=== PATIENT | male | born 1960 | race African-American/Black ===

== ENCOUNTER 2017-06-13 01:34 | Inpatient (IN) ==
[2017-06-13 02:37] LABS: Basophils # 0.1 10*3/uL (0.0-0.2); Basophils % 0.6 % (0.0-0.8); Hemoglobin 15.1 GM/DL (14.0-18.0); Immature Granulocytes % 0.4 %; Immature Granulocytes Absolute 0.03 #; Lymphocytes # 1.3 10*3/uL (1.4-4.0); Mean Corpuscular HGB Conc 35.1 GM/DL (32-36); Mean Corpuscular Hemoglobin 31 PG (27-34); Mean Corpuscular Volume 87.4 FL (87-102); Monocytes # 0.4 10*3/uL (0.11-0.8); Monocytes % 4.7 % (1.7-12.7); Neutrophils # 6.8 10*3/uL (1.4-7.4); Neutrophils % 79.3 % (38.7-73.9); Platelet Count 294 T/CUMM (130-400); Red Blood Count 4.92 MC/CUMM (3.8-5.5); Red Cell Distribution Width 11.4 % (9.3-17.3); White Blood Count 8.5 T/CUMM (4-12)
[2017-06-13 02:42] LABS: VBG Base Excess -1.8 MEQ/L (0-4); VBG HCO3 22.9 MEQ/L (24-28); VBG Oxygen Saturation 99.2 %; VBG PCO2 36.8 MMHG (41-51); VBG PH 7.395
[2017-06-13 02:52] LABS: Albumin 4.3 G/DL (3.4-5.0); Bilirubin,Total 0.5 MG/DL (0.2-1.0); Calcium 10.1 MG/DL (8.5-10.1); Osmolality,Calculated 310.1 MOS/KG (273-304); Potassium 4.4 MMOL/L (3.5-5.1); Total Protein 9.7 G/DL (6.4-8.3)
[2017-06-13] MEDS ORDERED: INSULIN REGULAR 100 UNIT/ML IV STA ×2 (03:31→09:41)
[2017-06-13] MEDS ORDERED: SODIUM CHLORIDE 0.9% 2,200 ML IV ONE (03:32)
[2017-06-13] MEDS ORDERED: INSULIN REGULAR 100 UNIT/ML ONE (03:38)
[2017-06-13 04:01] LABS: Apearance,Urine CLEAR (Clear); Bilirubin,Urine Negative (Negative); Blood, Urine Small mg/dL (Negative); Glucose,Urine (UA) >=500 mg/dL (Negative); Ketones,Urine 5 mg/dL (Negative); Nitrite,Urine Negative (Negative); Protein,Urine Negative; RBC,Urine 1 /HPF (0-4); Squamous Epithelial Cell,Urine Occasional /HPF (0-10); Urine Color Straw (Yellow); Urine Specific Gravity 1.028 (1.001-1.035); Urine Urobilinogen < 2.0 EU/DL (0.2-1.0); WBC,Urine <1 /HPF (0-6)
[2017-06-13 04:10] LABS: Barbiturates Screen,Urine Negative (Negative); Benzodiazepines Screen,Urine Negative (Negative); Cannabinoid Screen,Urine Negative (Negative); Opiate Screen,Urine Positive (Negative); Phencyclidine Screen,Urine Negative (Negative)
[2017-06-13] MEDS ORDERED: INSULIN REGULAR DRIP 100 ML IV SCH ×2 (04:30→06:00)
[2017-06-13] MEDS ORDERED: INSULIN REGULAR DRIP 100 ML IV ONE (04:46)
[2017-06-13] MEDS ORDERED: SODIUM CHLORIDE 0.9% 1,000 ML IV ONE (05:48)
[2017-06-13] MEDS ORDERED: SODIUM PHOSPHATE INJ 18.1 MMOL in SODIUM CHLORIDE 0.9% 250 ML IV PRN (05:48)
[2017-06-13] MEDS ORDERED: SODIUM BICARB INJ 100 MEQ in STERILE WATER INJ 400 ML IV PRN (05:48)
[2017-06-13] MEDS ORDERED: INSULIN REGULAR 100 UNIT/ML IV ONE (05:48)
[2017-06-13] MEDS ORDERED: DEXTROSE 50% 25 GM/50 ML VIAL IV PRN ×3 (05:48→05:57)
[2017-06-13] MEDS ORDERED: GLUCAGON 1 MG VIAL IM PRN (05:57)
[2017-06-13] MEDS ORDERED: MAGNESIUM SULF RIDER 4 GM in PREMIX 1 EACH IV PRN (05:57)
[2017-06-13] MEDS ORDERED: MAGNESIUM SULF RIDER 2 GM in PREMIX 1 EACH IV PRN (05:57)
[2017-06-13] MEDS: ENOXAPARIN 40 MG/0.4 ML SYRINGE SUBCUT SCH (07:10)
[2017-06-13 08:21] LABS: HIV Antigen/Antibody Result Nonreactive (Nonreactive)
[2017-06-13] MEDS ORDERED: LISINOPRIL 10 MG TABLET PO SCH (09:00)
[2017-06-13] MEDS: SODIUM CHLORIDE 0.9% 1,000 ML IV SCH ×2 (09:08→12:04)
[2017-06-13] MEDS ORDERED: NAPROXEN 500 MG TABLET ONE (09:13)
[2017-06-13] MEDS ORDERED: ASPIRIN CHEW 81 MG TABLET PO ONE (09:13)
[2017-06-13] MEDS ORDERED: LISINOPRIL 10 MG TABLET ONE (09:13)
[2017-06-13] MEDS: NAPROXEN 500 MG TABLET PO SCH ×2 (09:17→18:18)
[2017-06-13] MEDS: ASPIRIN EC 81 MG TABLET PO SCH (09:18)
[2017-06-13] MEDS ORDERED: SODIUM CHLORIDE 0.9% 1,000 ML IV SCH (10:48)
[2017-06-13] MEDS: INSULIN REGULAR 100 UNIT/ML SUBCUT SCH ×3 (12:05→20:16)
[2017-06-13 12:54] LABS: Calcium 8.7 MG/DL (8.5-10.1); Magnesium 2.4 MG/DL (1.8-2.4); Osmolality,Calculated 298.8 MOS/KG (273-304); Potassium 3.7 MMOL/L (3.5-5.1)
[2017-06-13] MEDS ORDERED: DEXT 5% NACL 0.45% KCL 20 MEQ 20 MEQ/1,000 ML BAG IV SCH (13:00)
[2017-06-13] MEDS: DEXTROSE 5% NACL 0.45% 1,000 ML IV SCH ×2 (13:30→17:42)
[2017-06-13] MEDS: POTASSIUM CHLORIDE RIDER 10 MEQ in PREMIX 1 EACH IV PRN ×4 (13:30→20:37)
[2017-06-13] MEDS ORDERED: ACETAMINOPHEN 325 MG TABLET PO PRN (17:17)
[2017-06-13 17:27] LABS: Calcium 8.4 MG/DL (8.5-10.1); Potassium 3.8 MMOL/L (3.5-5.1)
[2017-06-13] MEDS: SODIUM CHLORIDE 0.45% 1,000 ML IV SCH ×2 (17:30→21:50)
[2017-06-13] MEDS: metFORMIN 500 MG TABLET PO SCH (18:17)
[2017-06-13] MEDS: hydrALAZINE 20 MG/1 ML VIAL IV PRN (18:25)
[2017-06-13] MEDS ORDERED: INSULIN NPH/REGULAR 70/30 100 UNIT/ML SUBCUT SCH (19:00)
[2017-06-13] MEDS: TEMAZEPAM 15 MG CAPSULE PO PRN (20:04)
[2017-06-13] MEDS: LISINOPRIL 10 MG TABLET PO SCH (20:04)
[2017-06-13] MEDS: cloNIDine 0.1 MG TABLET PO PRN (23:16)
[2017-06-14 00:08] LABS: Osmolality,Calculated 286.7 MOS/KG (273-304); Potassium 3.3 MMOL/L (3.5-5.1)
[2017-06-14] MEDS: SODIUM CHLORIDE 0.45% 1,000 ML IV SCH ×3 (00:26→09:52)
[2017-06-14] MEDS: POTASSIUM CHLORIDE RIDER 10 MEQ in PREMIX 1 EACH IV PRN ×4 (00:26→03:56)
[2017-06-14] MEDS: hydrALAZINE 20 MG/1 ML VIAL IV PRN ×2 (00:30→06:23)
[2017-06-14 04:05] LABS: Basophils # 0.1 10*3/uL (0.0-0.2); Basophils % 0.5 % (0.0-0.8); Eosinophils # 0.1 10*3/uL (0.0-0.87); Eosinophils % 0.5 % (0.00-10.9); Hematocrit 36.3 VOL% (42.0-52.0); Hemoglobin 12.7 GM/DL (14.0-18.0); Immature Granulocytes % 0.1 %; Immature Granulocytes Absolute 0.01 #; Lymphocytes # 3.1 10*3/uL (1.4-4.0); Lymphocytes % 33.3 % (21.2-54.2); Mean Corpuscular Hemoglobin 31 PG (27-34); Mean Corpuscular Volume 87.3 FL (87-102); Mean Platelet Volume 10.7 FL (9.6-12.0); Monocytes # 0.5 10*3/uL (0.11-0.8); Monocytes % 5.6 % (1.7-12.7); Neutrophils # 5.6 10*3/uL (1.4-7.4); Platelet Count 237 T/CUMM (130-400); Red Blood Count 4.16 MC/CUMM (3.8-5.5); Red Cell Distribution Width 11.4 % (9.3-17.3); White Blood Count 9.3 T/CUMM (4-12)
[2017-06-14 04:30] LABS: Calcium 7.9 MG/DL (8.5-10.1); Osmolality,Calculated 281.8 MOS/KG (273-304); Potassium 3.8 MMOL/L (3.5-5.1)
[2017-06-14 04:31] LABS: Magnesium 1.8 MG/DL (1.8-2.4); Phosphorous 1.8 MG/DL (2.5-4.9)
[2017-06-14] MEDS: ENOXAPARIN 40 MG/0.4 ML SYRINGE SUBCUT SCH (05:05)
[2017-06-14] MEDS: cloNIDine 0.1 MG TABLET PO PRN (05:06)
[2017-06-14] MEDS: NAPROXEN 500 MG TABLET PO SCH ×2 (05:48→17:45)
[2017-06-14] MEDS: INSULIN REGULAR 100 UNIT/ML SUBCUT SCH ×4 (08:43→22:01)
[2017-06-14] MEDS: INSULIN NPH/REGULAR 70/30 100 UNIT/ML SUBCUT SCH (08:44)
[2017-06-14] MEDS: metFORMIN 500 MG TABLET PO SCH ×2 (08:46→16:39)
[2017-06-14] MEDS: LISINOPRIL 10 MG TABLET PO SCH (08:46)
[2017-06-14] MEDS: ASPIRIN EC 81 MG TABLET PO SCH (08:46)
[2017-06-14] MEDS ORDERED: hydroCHLOROthiazide 12.5 MG CAPSULE PO SCH (09:00)
[2017-06-14] MEDS: LISINOPRIL 20 MG TABLET PO SCH ×2 (12:45→22:01)
[2017-06-14] MEDS ORDERED: INSULIN NPH/REGULAR 70/30 100 UNIT/ML SUBCUT SCH (16:30)
[2017-06-14] MEDS: TEMAZEPAM 15 MG CAPSULE PO PRN (22:28)
[2017-06-15] MEDS: NAPROXEN 500 MG TABLET PO SCH ×2 (05:54→17:45)
[2017-06-15] MEDS: ENOXAPARIN 40 MG/0.4 ML SYRINGE SUBCUT SCH (05:54)
[2017-06-15 07:22] LABS: Calcium 8.2 MG/DL (8.5-10.1); Osmolality,Calculated 277.2 MOS/KG (273-304); Potassium 3.7 MMOL/L (3.5-5.1)
[2017-06-15] MEDS: INSULIN REGULAR 100 UNIT/ML SUBCUT SCH ×4 (07:48→21:29)
[2017-06-15] MEDS ORDERED: INSULIN NPH/REGULAR 70/30 100 UNIT/ML SUBCUT ONE (08:48)
[2017-06-15] MEDS: metFORMIN 500 MG TABLET PO SCH ×2 (08:53→17:11)
[2017-06-15] MEDS: ASPIRIN EC 81 MG TABLET PO SCH (08:53)
[2017-06-15] MEDS: LISINOPRIL 20 MG TABLET PO SCH ×2 (08:53→21:25)
[2017-06-15] MEDS: BACITRACIN/POLYMYXIN OINT 14.17 GM TUBE TOP SCH ×2 (08:54→21:30)
[2017-06-15] MEDS: amLODIPine 5 MG TABLET PO SCH (08:58)
[2017-06-15] MEDS ORDERED: INSULIN NPH/REGULAR 70/30 100 UNIT/ML SUBCUT SCH (09:00)
[2017-06-15] MEDS: POTASSIUM CHLORIDE RIDER 10 MEQ in PREMIX 1 EACH IV PRN ×2 (10:59→13:11)
[2017-06-15] MEDS: INSULIN NPH/REGULAR 70/30 100 UNIT/ML SUBCUT SCH ×2 (12:16→17:07)
[2017-06-15] MEDS: cloNIDine 0.1 MG TABLET PO PRN (15:50)
[2017-06-15] MEDS: NICOTINE 21 MG/24 HR PATCH TRANSDERM SCH (17:08)
[2017-06-15] MEDS: TEMAZEPAM 15 MG CAPSULE PO PRN (21:25)
[2017-06-16] MEDS: ENOXAPARIN 40 MG/0.4 ML SYRINGE SUBCUT SCH (05:59)
[2017-06-16] MEDS: NAPROXEN 500 MG TABLET PO SCH (05:59)
[2017-06-16 08:50] LABS: Blood Urea Nitrogen 11 MG/DL (7-18); Calcium 8.5 MG/DL (8.5-10.1); Glucose 164 MG/DL (74-106); Osmolality,Calculated 272.1 MOS/KG (273-304); Potassium 3.6 MMOL/L (3.5-5.1); Rheumatoid Factor < 15 IU/ML (<15); Sodium 135 MMOL/L (136-145); Uric Acid 2.3 MG/DL (3.5-7.2)
[2017-06-16] MEDS: metFORMIN 500 MG TABLET PO SCH (09:02)
[2017-06-16] MEDS: NICOTINE 21 MG/24 HR PATCH TRANSDERM SCH (09:03)
[2017-06-16] MEDS: INSULIN REGULAR 100 UNIT/ML SUBCUT SCH ×2 (09:03→12:50)
[2017-06-16] MEDS: amLODIPine 5 MG TABLET PO SCH (09:03)
[2017-06-16] MEDS: ASPIRIN EC 81 MG TABLET PO SCH (09:03)
[2017-06-16] MEDS: LISINOPRIL 20 MG TABLET PO SCH (09:03)
[2017-06-16] MEDS: BACITRACIN/POLYMYXIN OINT 14.17 GM TUBE TOP SCH (09:03)
[2017-06-16] MEDS: INSULIN NPH/REGULAR 70/30 100 UNIT/ML SUBCUT SCH (09:04)
[2017-06-16 13:02] VITALS: BP 174/74
== END 2017-06-16 14:17 | disposition home or self-care (01) | DRG 638 ==
LOC: N.ED 01:34 → N.EDINP 05:15 → SUATTDRO 05:15 → N.CC 11:25 → N.5E 06-14 14:47
PROVIDERS: ATTEND Hospitalist

== ENCOUNTER 2018-03-05 16:23 | Observation (INO) ==
[2018-03-05 17:18] LABS: Basophils # 0.1 10*3/uL (0.0-0.2); Basophils % 0.7 % (0.0-0.8); Eosinophils # 0.1 10*3/uL (0.0-0.87); Eosinophils % 0.8 % (0.00-10.9); Hematocrit 40.2 VOL% (42.0-52.0); Hemoglobin 13.5 GM/DL (14.0-18.0); Immature Granulocytes % 0.3 %; Immature Granulocytes Absolute 0.02 #; Lymphocytes # 2.1 10*3/uL (1.4-4.0); Lymphocytes % 28.2 % (21.2-54.2); Mean Corpuscular HGB Conc 33.6 GM/DL (32-36); Mean Corpuscular Hemoglobin 30 PG (27-34); Mean Corpuscular Volume 89.7 FL (87-102); Monocytes # 0.5 10*3/uL (0.11-0.8); Neutrophils # 4.6 10*3/uL (1.4-7.4); Platelet Count 321 T/CUMM (130-400); Red Blood Count 4.48 MC/CUMM (3.8-5.5); Red Cell Distribution Width 12.6 % (9.3-17.3); White Blood Count 7.3 T/CUMM (4-12)
[2018-03-05 17:25] LABS: Apearance,Urine CLEAR (Clear); Bacteria,Urine Occasional /HPF (Few); Bilirubin,Urine Negative (Negative); Blood, Urine Small mg/dL (Negative); Glucose,Urine (UA) >=500 mg/dL (Negative); Ketones,Urine Negative (Negative); Mucus,Urine Occasional /LPF (Occasional); Nitrite,Urine Negative (Negative); Protein,Urine Negative; RBC,Urine 1 /HPF (0-4); Squamous Epithelial Cell,Urine Occasional /HPF (0-10); Urine Color Straw (Yellow); Urine Specific Gravity 1.029 (1.001-1.035); Urine Urobilinogen < 2.0 EU/DL (0.2-1.0); WBC,Urine 2 /HPF (0-6)
[2018-03-05 17:59] LABS: Albumin 3.8 G/DL (3.4-5.0); Bilirubin,Total 0.4 MG/DL (0.2-1.0); Calcium 9.3 MG/DL (8.5-10.1); Osmolality,Calculated 293.4 MOS/KG (273-304); Potassium 4.6 MMOL/L (3.5-5.1); Total Protein 8.3 G/DL (6.4-8.3)
[2018-03-05] MEDS ORDERED: SODIUM CHLORIDE 0.9% 1,000 ML IV STA (18:03)
[2018-03-05] MEDS ORDERED: INSULIN REGULAR 100 UNIT/ML IV STA (18:12)
[2018-03-05] MEDS ORDERED: INSULIN LISPRO 100 UNIT/ML ONE (18:20)
[2018-03-05] MEDS ORDERED: GLUCAGON 1 MG VIAL IM PRN (18:37)
[2018-03-05] MEDS ORDERED: DEXTROSE 50% 25 GM/50 ML VIAL IV PRN (18:37)
[2018-03-05] MEDS ORDERED: ENOXAPARIN 40 MG/0.4 ML SYRINGE ONE (18:41)
[2018-03-05] MEDS ORDERED: hydrALAZINE 20 MG/1 ML VIAL IV PRN (18:42)
[2018-03-05] MEDS ORDERED: LISINOPRIL 10 MG TABLET PO STA (18:51)
[2018-03-05] MEDS ORDERED: MAGNESIUM CITRATE 300 ML BOTTLE PO ONE (19:00)
[2018-03-05] MEDS ORDERED: cefTRIAXone 1,000 MG VIAL ONE (19:02)
[2018-03-05] MEDS: cefTRIAXone 1,000 MG in SYRINGE 1 EACH IV SCH (19:08)
[2018-03-05] MEDS ORDERED: LISINOPRIL 10 MG TABLET ONE (19:10)
[2018-03-05] MEDS ORDERED: MAGNESIUM CITRATE 300 ML BOTTLE ONE (19:17)
[2018-03-05] MEDS: SODIUM CHLORIDE 0.9% 1,000 ML IV SCH (19:26)
[2018-03-05] MEDS: INSULIN REGULAR 100 UNIT/ML SUBCUT SCH (22:12)
[2018-03-05] MEDS: NYSTATIN 500,000 UNIT/5 ML UDCUP SWISH/SWAL SCH (22:13)
[2018-03-05] MEDS: DOXYCYCLINE HYCLATE 100 MG CAPSULE PO SCH (22:13)
[2018-03-05] MEDS: ENOXAPARIN 40 MG/0.4 ML SYRINGE SUBCUT SCH (22:13)
[2018-03-05] MEDS ORDERED: INSULIN GLARGINE 100 UNIT/ML SUBCUT SCH (22:30)
[2018-03-06] MEDS ORDERED: SODIUM PHOSPHATE ENEMA 133 ML BOTTLE RECTAL ONE
[2018-03-06] MEDS: SODIUM CHLORIDE 0.9% 1,000 ML IV SCH ×2 (06:02→12:32)
[2018-03-06 06:31] LABS: Basophils # 0.1 10*3/uL (0.0-0.2); Basophils % 0.9 % (0.0-0.8); Eosinophils # 0.1 10*3/uL (0.0-0.87); Eosinophils % 1.3 % (0.00-10.9); Hematocrit 35.9 VOL% (42.0-52.0); Hemoglobin 12.2 GM/DL (14.0-18.0); Immature Granulocytes % 0.1 %; Immature Granulocytes Absolute 0.01 #; Lymphocytes % 43.9 % (21.2-54.2); Mean Corpuscular Hemoglobin 30 PG (27-34); Mean Corpuscular Volume 88.6 FL (87-102); Mean Platelet Volume 9.9 FL (9.6-12.0); Monocytes # 0.5 10*3/uL (0.11-0.8); Monocytes % 7.8 % (1.7-12.7); Neutrophils # 3.1 10*3/uL (1.4-7.4); Platelet Count 295 T/CUMM (130-400); Red Blood Count 4.05 MC/CUMM (3.8-5.5); Red Cell Distribution Width 12.5 % (9.3-17.3); White Blood Count 6.8 T/CUMM (4-12)
[2018-03-06 06:43] LABS: Calcium 7.9 MG/DL (8.5-10.1)
[2018-03-06 06:44] LABS: Osmolality,Calculated 280.7 MOS/KG (273-304); Potassium 3.7 MMOL/L (3.5-5.1)
[2018-03-06] MEDS ORDERED: ATENOLOL 50 MG TABLET PO SCH (09:00)
[2018-03-06] MEDS ORDERED: ASPIRIN EC 81 MG TABLET PO SCH (09:00)
[2018-03-06] MEDS: NYSTATIN 500,000 UNIT/5 ML UDCUP SWISH/SWAL SCH ×4 (09:15→21:32)
[2018-03-06] MEDS: INSULIN REGULAR 100 UNIT/ML SUBCUT SCH ×3 (09:15→16:55)
[2018-03-06] MEDS: POLYETHYLENE GLYCOL POWDER 17 GM PACK PO SCH (09:16)
[2018-03-06] MEDS: DOXYCYCLINE HYCLATE 100 MG CAPSULE PO SCH ×2 (09:16→21:31)
[2018-03-06] MEDS: glipiZIDE 10 MG TABLET PO SCH ×2 (09:24→21:31)
[2018-03-06] MEDS: hydrALAZINE 25 MG TABLET PO SCH ×2 (09:24→21:33)
[2018-03-06] MEDS: GABAPENTIN 300 MG CAPSULE PO SCH ×3 (09:28→21:31)
[2018-03-06] MEDS: LISINOPRIL 10 MG TABLET PO SCH (09:28)
[2018-03-06] MEDS: MORPHINE 4 MG/1 ML VIAL IV PRN ×2 (12:33→21:31)
[2018-03-06] MEDS ORDERED: MAGNESIUM CITRATE 300 ML BOTTLE PO PRN (13:28)
[2018-03-06] MEDS ORDERED: INSULIN GLARGINE 100 UNIT/ML SUBCUT SCH (14:09)
[2018-03-06] MEDS: BACITRACIN OINT 0.9 GM PACK TOP SCH (14:27)
[2018-03-06] MEDS: metFORMIN 500 MG TABLET PO SCH (16:56)
[2018-03-06] MEDS: cefTRIAXone 1,000 MG in SYRINGE 1 EACH IV SCH (18:39)
[2018-03-06] MEDS: ENOXAPARIN 40 MG/0.4 ML SYRINGE SUBCUT SCH (21:31)
[2018-03-07] MEDS: INSULIN REGULAR 100 UNIT/ML SUBCUT SCH ×2 (00:56→08:44)
[2018-03-07] MEDS: BACITRACIN OINT 0.9 GM PACK TOP SCH ×2 (00:56→09:48)
[2018-03-07] MEDS: SODIUM CHLORIDE 0.9% 1,000 ML IV SCH (02:49)
[2018-03-07] MEDS: MORPHINE 4 MG/1 ML VIAL IV PRN (05:50)
[2018-03-07] MEDS: metFORMIN 500 MG TABLET PO SCH (08:44)
[2018-03-07] MEDS: glipiZIDE 10 MG TABLET PO SCH (08:46)
[2018-03-07] MEDS ORDERED: FLUCONAZOLE 200 MG TABLET PO SCH (09:00)
[2018-03-07] MEDS: hydrALAZINE 25 MG TABLET PO SCH (09:47)
[2018-03-07] MEDS: LISINOPRIL 10 MG TABLET PO SCH (09:47)
[2018-03-07] MEDS: GABAPENTIN 300 MG CAPSULE PO SCH (09:47)
[2018-03-07] MEDS: POLYETHYLENE GLYCOL POWDER 17 GM PACK PO SCH (09:48)
[2018-03-07] MEDS: NYSTATIN 500,000 UNIT/5 ML UDCUP SWISH/SWAL SCH (09:48)
[2018-03-07] MEDS: DOXYCYCLINE HYCLATE 100 MG CAPSULE PO SCH (09:48)
[2018-03-07 13:10] VITALS: BP 154/84
== END 2018-03-07 12:10 | disposition home or self-care (01) ==
LOC: N.ED 16:23 → N.EDINP 16:23 → N.5E 21:57
PROVIDERS: ADMIT Internal Medicine; ATTEND Internal Medicine

== ENCOUNTER 2019-01-01 09:55 | Observation (INO) ==
[2019-01-01 10:51] LABS: Basophils % 0.6 % (0.0-0.8); Eosinophils # 0.1 10*3/uL (0.0-0.87); Eosinophils % 0.9 % (0.00-10.9); Hematocrit 35.5 VOL% (42.0-52.0); Hemoglobin 11.9 GM/DL (14.0-18.0); Immature Granulocytes % 0.3 %; Immature Granulocytes Absolute 0.02 #; Lymphocytes # 1.6 10*3/uL (1.4-4.0); Lymphocytes % 25.3 % (21.2-54.2); Mean Corpuscular HGB Conc 33.5 GM/DL (32-36); Mean Corpuscular Volume 87.2 FL (87-102); Mean Platelet Volume 9.9 FL (9.6-12.0); Monocytes % 8.2 % (1.7-12.7); Neutrophils % 64.7 % (38.7-73.9); Platelet Count 295 T/CUMM (130-400); Red Blood Count 4.07 MC/CUMM (3.8-5.5); Red Cell Distribution Width 11.9 % (9.3-17.3); White Blood Count 6.5 T/CUMM (4-12)
[2019-01-01] MEDS ORDERED: SODIUM CHLORIDE 0.9% 1,000 ML IV STA (10:53)
[2019-01-01 11:01] LABS: Apearance,Urine CLEAR (Clear); Bilirubin,Urine Negative (Negative); Blood, Urine Negative (Negative); Glucose,Urine (UA) >=500 mg/dL (Negative); Ketones,Urine Negative (Negative); Nitrite,Urine Negative (Negative); Protein,Urine Negative; Urine Color Light Yellow (Yellow); Urine Specific Gravity 1.028 (1.001-1.035); Urine Urobilinogen < 2.0 EU/DL (0.2-1.0)
[2019-01-01 11:05] LABS: INR 0.9; PT Patient Result 9.7 SECS; Partial Thromboplastin Time 24.6 SECS (0-40)
[2019-01-01 11:08] LABS: Barbiturates Screen,Urine Negative (Negative); Benzodiazepines Screen,Urine Negative (Negative); Cannabinoid Screen,Urine Negative (Negative); Opiate Screen,Urine Positive (Negative); Phencyclidine Screen,Urine Negative (Negative)
[2019-01-01 11:22] LABS: Albumin 3.7 G/DL (3.4-5.0); Bilirubin,Total 0.6 MG/DL (0.2-1.0); Osmolality,Calculated 295.2 MOS/KG (273-304); Total Protein 7.4 G/DL (6.4-8.3)
[2019-01-01] MEDS ORDERED: INSULIN REGULAR 100 UNIT/ML ONE (12:18)
[2019-01-01] MEDS ORDERED: INSULIN REGULAR 100 UNIT/ML IV STA (12:24)
[2019-01-01] MEDS ORDERED: GLUCAGON 1 MG VIAL IM PRN (13:23)
[2019-01-01] MEDS ORDERED: hydrALAZINE 20 MG/1 ML VIAL IV PRN (13:23)
[2019-01-01] MEDS ORDERED: DEXTROSE 50% 25 GM/50 ML VIAL IV PRN ×2 (13:23→13:35)
[2019-01-01] MEDS ORDERED: amLODIPine 5 MG TABLET PO STA (13:26)
[2019-01-01] MEDS ORDERED: DEXTROSE 10% 250 ML IV PRN (13:30)
[2019-01-01] MEDS ORDERED: PROMETHAZINE 25 MG/1 ML VIAL IM PRN (13:35)
[2019-01-01] MEDS ORDERED: ACETAMINOPHEN 325 MG TABLET PO PRN (13:35)
[2019-01-01] MEDS ORDERED: ONDANSETRON 4 MG/2 ML VIAL IV PRN (13:35)
[2019-01-01 14:56] LABS: ABG Base Excess 0.7 MMOL/L (-2.5-2.5); ABG Oxygen Saturation 97.6 % (95-100); ABG PCO2 41.9 MM HG (35-48); ABG PH 7.395 (7.35-7.45); ABG PO2 90.9 MM HG (80-95); ABG TCO2 22.7 MMOL/L (23-27)
[2019-01-01] MEDS: INSULIN REGULAR 100 UNIT/ML SUBCUT SCH ×3 (16:00→22:11)
[2019-01-01] MEDS: INSULIN NPH/REGULAR 70/30 100 UNIT/ML SUBCUT SCH (16:29)
[2019-01-01] MEDS: SODIUM CHLORIDE 0.9% 1,000 ML IV SCH (16:29)
[2019-01-01] MEDS: metFORMIN 500 MG TABLET PO SCH (16:30)
[2019-01-01] MEDS: HEPARIN 5,000 UNIT/1 ML VIAL SUBCUT SCH (16:31)
[2019-01-01] MEDS: GABAPENTIN 300 MG CAPSULE PO SCH ×2 (16:31→22:11)
[2019-01-01] MEDS ORDERED: GABAPENTIN 300 MG CAPSULE PO SCH (21:00)
[2019-01-01] MEDS: DOCUSATE SODIUM 100 MG CAPSULE PO SCH (22:11)
[2019-01-01] MEDS: glipiZIDE 10 MG TABLET PO SCH (22:11)
[2019-01-02] MEDS: HEPARIN 5,000 UNIT/1 ML VIAL SUBCUT SCH ×4 (00:22→23:40)
[2019-01-02 04:51] LABS: Basophils % 0.3 % (0.0-0.8); Eosinophils # 0.1 10*3/uL (0.0-0.87); Eosinophils % 0.9 % (0.00-10.9); Hematocrit 37.3 VOL% (42.0-52.0); Hemoglobin 12.6 GM/DL (14.0-18.0); Immature Granulocytes % 0.2 %; Immature Granulocytes Absolute 0.02 #; Lymphocytes # 3.3 10*3/uL (1.4-4.0); Lymphocytes % 37.8 % (21.2-54.2); Mean Corpuscular HGB Conc 33.8 GM/DL (32-36); Mean Corpuscular Volume 86.3 FL (87-102); Mean Platelet Volume 9.7 FL (9.6-12.0); Monocytes % 5.1 % (1.7-12.7); Neutrophils % 55.7 % (38.7-73.9); Platelet Count 294 T/CUMM (130-400); Red Blood Count 4.32 MC/CUMM (3.8-5.5); Red Cell Distribution Width 11.7 % (9.3-17.3); White Blood Count 8.7 T/CUMM (4-12)
[2019-01-02 05:23] LABS: Albumin 3.1 G/DL (3.4-5.0); Calcium 8.4 MG/DL (8.5-10.1); Osmolality,Calculated 280.7 MOS/KG (273-304); Risk Ratio 2.32; Thyroid Stimulating Hormone 0.148 uIU/ml (0.358-3.74); Total Protein 6.4 G/DL (6.4-8.3); VLDL CHOLESTEROL 14.8 MG/DL
[2019-01-02 06:01] LABS: Calcium 8.4 MG/DL (8.5-10.1); Osmolality,Calculated 277.8 MOS/KG (273-304)
[2019-01-02] MEDS: SODIUM CHLORIDE 0.9% 1,000 ML IV SCH ×2 (06:11→16:24)
[2019-01-02] MEDS: INSULIN REGULAR 100 UNIT/ML SUBCUT SCH ×4 (08:11→21:48)
[2019-01-02] MEDS: glipiZIDE 10 MG TABLET PO SCH ×2 (08:13→21:48)
[2019-01-02] MEDS: GABAPENTIN 300 MG CAPSULE PO SCH ×3 (08:13→21:47)
[2019-01-02] MEDS: PANTOPRAZOLE 40 MG TABLET PO SCH (08:13)
[2019-01-02] MEDS: DOCUSATE SODIUM 100 MG CAPSULE PO SCH ×2 (08:13→21:46)
[2019-01-02] MEDS: ATENOLOL 50 MG TABLET PO SCH (08:13)
[2019-01-02] MEDS: INSULIN NPH/REGULAR 70/30 100 UNIT/ML SUBCUT SCH ×2 (08:13→16:23)
[2019-01-02] MEDS: hydroCHLOROthiazide 25 MG TABLET PO SCH (08:14)
[2019-01-02] MEDS: metFORMIN 500 MG TABLET PO SCH ×2 (08:14→16:23)
[2019-01-02] MEDS: LISINOPRIL 10 MG TABLET PO SCH (08:14)
[2019-01-02] MEDS: ASPIRIN EC 81 MG TABLET PO SCH (08:59)
[2019-01-02] MEDS ORDERED: amLODIPine 10 MG TABLET PO SCH (09:00)
[2019-01-02] MEDS ORDERED: POTASSIUM CHLORIDE 20 MEQ TABLET PO ONE (10:00)
[2019-01-02] MEDS ORDERED: POTASSIUM CHLORIDE 20 MEQ TABLET PO PRN (11:54)
[2019-01-02] MEDS: MAGNESIUM CHLORIDE 64 MG TABLET PO SCH (12:35)
[2019-01-02] MEDS: KETOROLAC 30 MG/1 ML VIAL IV SCH ×2 (17:25→23:38)
[2019-01-03 04:33] LABS: Basophils % 0.7 % (0.0-0.8); Eosinophils # 0.1 10*3/uL (0.0-0.87); Eosinophils % 1.6 % (0.00-10.9); Hematocrit 35.5 VOL% (42.0-52.0); Lymphocytes # 3.6 10*3/uL (1.4-4.0); Lymphocytes % 61.7 % (21.2-54.2); Mean Corpuscular HGB Conc 33.8 GM/DL (32-36); Mean Platelet Volume 10.1 FL (9.6-12.0); Platelet Count 287 T/CUMM (130-400); Red Blood Count 4.08 MC/CUMM (3.8-5.5); White Blood Count 5.8 T/CUMM (4-12)
[2019-01-03 04:47] LABS: Albumin 2.7 G/DL (3.4-5.0); Bilirubin,Total 0.4 MG/DL (0.2-1.0); Calcium 7.8 MG/DL (8.5-10.1); Osmolality,Calculated 284.8 MOS/KG (273-304); Total Protein 6.1 G/DL (6.4-8.3)
[2019-01-03 04:51] LABS: Calcium 7.9 MG/DL (8.5-10.1); Osmolality,Calculated 286.8 MOS/KG (273-304)
[2019-01-03 05:04] LABS: Band Neutrophils 1 % (0-10); Eosinophils 2 % (0-10); Lymphocytes 57 % (20-55); Nucleated Red Blood Cells 3 (0-5); Platelet Estimate Normal; Segmented Neutrophils 34 % (50-85); Total Cells Counted 100
[2019-01-03] MEDS: SODIUM CHLORIDE 0.9% 1,000 ML IV SCH ×2 (05:07→17:14)
[2019-01-03] MEDS: KETOROLAC 30 MG/1 ML VIAL IV SCH ×2 (05:08→14:52)
[2019-01-03] MEDS ORDERED: POTASSIUM CHLORIDE RIDER 10 MEQ in PREMIX 1 EACH IV PRN (06:44)
[2019-01-03] MEDS ORDERED: MAGNESIUM SULF RIDER 2 GM in PREMIX 1 EACH IV PRN (06:44)
[2019-01-03] MEDS ORDERED: DIAZEPAM 5 MG TABLET PO ONE (06:44)
[2019-01-03] MEDS ORDERED: diphenhydrAMINE CAP 25 MG CAPSULE PO ONE (06:44)
[2019-01-03] MEDS ORDERED: INSULIN NPH/REGULAR 70/30 100 UNIT/ML SUBCUT SCH (08:34)
[2019-01-03] MEDS: INSULIN REGULAR 100 UNIT/ML SUBCUT SCH ×3 (08:54→15:49)
[2019-01-03] MEDS: MAGNESIUM CHLORIDE 64 MG TABLET PO SCH (08:55)
[2019-01-03] MEDS: metFORMIN 500 MG TABLET PO SCH ×2 (08:56→16:28)
[2019-01-03] MEDS: hydroCHLOROthiazide 25 MG TABLET PO SCH (08:56)
[2019-01-03] MEDS: DOCUSATE SODIUM 100 MG CAPSULE PO SCH (08:56)
[2019-01-03] MEDS: glipiZIDE 10 MG TABLET PO SCH (08:56)
[2019-01-03] MEDS: LISINOPRIL 10 MG TABLET PO SCH (08:56)
[2019-01-03] MEDS: ASPIRIN EC 81 MG TABLET PO SCH (08:56)
[2019-01-03] MEDS: GABAPENTIN 300 MG CAPSULE PO SCH ×2 (08:56→16:25)
[2019-01-03] MEDS: ATENOLOL 50 MG TABLET PO SCH (08:56)
[2019-01-03] MEDS: PANTOPRAZOLE 40 MG TABLET PO SCH (08:56)
[2019-01-03] MEDS: HEPARIN 5,000 UNIT/1 ML VIAL SUBCUT SCH ×2 (08:57→16:24)
[2019-01-03] MEDS: INSULIN NPH/REGULAR 70/30 100 UNIT/ML SUBCUT SCH (09:27)
[2019-01-03] MEDS ORDERED: KETOROLAC 30 MG/1 ML VIAL IV SCH (13:30)
[2019-01-03] MEDS ORDERED: fentaNYL 100 MCG/2 ML VIAL ONE (14:30)
[2019-01-03] MEDS ORDERED: NITROGLYCERIN DRIP 50 MG/250 ML BOTTLE IV ONE (14:30)
[2019-01-03] MEDS ORDERED: LIDOCAINE 1% 20 ML VIAL ONE (14:30)
[2019-01-03] MEDS ORDERED: MIDAZOLAM 2 MG/2 ML VIAL ONE (14:30)
[2019-01-03] MEDS ORDERED: VERAPAMIL 5 MG/2 ML VIAL ONE (14:30)
[2019-01-03] MEDS ORDERED: ENOXAPARIN 30 MG/0.3 ML SYRINGE ONE (14:47)
[2019-01-03 15:31] VITALS: BP 138/74
== END 2019-01-03 18:23 | disposition home or self-care (01) ==
LOC: N.EDINP 09:55 → N.ED 09:55 → N.5E 15:43
PROVIDERS: ADMIT Hospitalist; ATTEND Hospitalist
PROC: CLCCHCL (ICD-10-PCS; 2019-01-03 14:45)

== ENCOUNTER 2022-01-11 12:13 | Observation (INO) ==
[2022-01-11] MEDS ORDERED: SODIUM CHLORIDE 0.9% 1,000 ML IV STA ×2 (13:18→14:00)
[2022-01-11 13:30] LABS: Basophils # 0.1 10*3/uL (0.0-0.2); Basophils % 0.9 % (0.0-0.8); Eosinophils # 0.1 10*3/uL (0.0-0.87); Eosinophils % 0.9 % (0.00-10.9); Hemoglobin 13.7 GM/DL (14.0-18.0); Immature Granulocytes % 0.2 %; Immature Granulocytes Absolute 0.01 #; Lymphocytes # 1.9 10*3/uL (1.4-4.0); Lymphocytes % 31.6 % (21.2-54.2); Mean Corpuscular HGB Conc 34.3 GM/DL (32-36); Mean Corpuscular Volume 87.9 FL (87-102); Mean Platelet Volume 10.4 FL (9.6-12.0); Monocytes # 0.6 10*3/uL (0.11-0.8); Monocytes % 9.4 % (1.7-12.7); Platelet Count 283 T/CUMM (130-400); Red Blood Count 4.55 MC/CUMM (3.8-5.5); White Blood Count 5.9 T/CUMM (4-12)
[2022-01-11 14:08] LABS: Osmolality,Calculated 306.6 MOS/KG (273-304)
[2022-01-11 14:37] LABS: Arterial Base Excess iSTAT 0 MMOL/L (-2.5-2.5); Arterial Bicarbonate iSTAT 25.5 MMOL/L (20-26); Arterial O2 Saturation iSTAT 96 % (95-100); Arterial PCO2 iSTAT 42 MM HG (35-48); Arterial PO2 iSTAT 85 MM HG (80-95); Arterial Total CO2 iSTAT 27 MMO/L (23-27); Arterial pH iSTAT 7.394 (7.35-7.45)
[2022-01-11] MEDS ORDERED: INSULIN REGULAR 100 UNIT/ML ONE (15:21)
[2022-01-11] MEDS ORDERED: INSULIN REGULAR 100 UNIT/ML IV STA ×2 (15:32→16:09)
[2022-01-11] MEDS: SODIUM CHLORIDE 0.9% 1,000 ML IV SCH (16:00)
[2022-01-11] MEDS ORDERED: GLUCAGON 1 MG VIAL IM PRN (16:07)
[2022-01-11] MEDS ORDERED: DOCUSATE SODIUM 100 MG CAPSULE PO PRN (16:07)
[2022-01-11] MEDS ORDERED: ONDANSETRON 4 MG/2 ML VIAL IV PRN (16:07)
[2022-01-11] MEDS ORDERED: ACETAMINOPHEN 325 MG TABLET PO PRN (16:07)
[2022-01-11] MEDS ORDERED: CALCIUM CARBONATE CHEW 500 MG TABLET PO PRN (16:07)
[2022-01-11] MEDS ORDERED: DEXTROSE 10% 250 ML BAG IV PRN (16:18)
[2022-01-11] MEDS ORDERED: ENOXAPARIN 40 MG/0.4 ML SYRINGE SUBCUT SCH (16:30)
[2022-01-11] MEDS ORDERED: INSULIN LISPRO 100 UNIT/ML SUBCUT SCH (18:00)
[2022-01-11] MEDS: INSULIN LISPRO 100 UNIT/ML SUBCUT SCH (21:02)
[2022-01-12] MEDS: INSULIN LISPRO 100 UNIT/ML SUBCUT SCH ×4 (00:05→11:47)
[2022-01-12 05:54] LABS: Basophils # 0.1 10*3/uL (0.0-0.2); Eosinophils # 0.2 10*3/uL (0.0-0.87); Eosinophils % 2.6 % (0.00-10.9); Hemoglobin 12.2 GM/DL (14.0-18.0); Immature Granulocytes % 0.1 %; Immature Granulocytes Absolute 0.01 #; Lymphocytes # 4.2 10*3/uL (1.4-4.0); Lymphocytes % 55.2 % (21.2-54.2); Mean Corpuscular HGB Conc 33.9 GM/DL (32-36); Mean Corpuscular Volume 88.2 FL (87-102); Mean Platelet Volume 10.3 FL (9.6-12.0); Monocytes # 0.6 10*3/uL (0.11-0.8); Monocytes % 7.8 % (1.7-12.7); Neutrophils % 33.3 % (38.7-73.9); Platelet Count 240 T/CUMM (130-400); Red Blood Count 4.08 MC/CUMM (3.8-5.5); Red Cell Distribution Width 12.1 % (9.3-17.3); White Blood Count 7.7 T/CUMM (4-12)
[2022-01-12 06:10] LABS: Eosinophils 6 % (0-10); Lymphocytes 62 % (20-55); Total Cells Counted 100
[2022-01-12 06:11] LABS: Hypochromia 1+; Microcytosis Slight; Platelet Estimate Normal
[2022-01-12 08:42] LABS: Calcium 8.8 MG/DL (8.5-10.1); Osmolality,Calculated 293.4 MOS/KG (273-304); Potassium 3.6 MMOL/L (3.5-5.1)
[2022-01-12] MEDS: SODIUM CHLORIDE 0.9% 1,000 ML IV SCH ×2 (08:53)
[2022-01-12 11:42] VITALS: BP 128/72
== END 2022-01-12 13:06 | disposition home or self-care (01) ==
LOC: N.EDINP 12:13 → N.ED 12:13 → SUATTDRO 16:07 → N.3E 17:53
PROVIDERS: ADMIT Internal Medicine Geriatric Medicine; ATTEND Internal Medicine

== ENCOUNTER 2022-03-01 22:54 | Observation (INO) ==
[2022-03-01] MEDS ORDERED: SODIUM CHLORIDE 0.9% 1,000 ML IV STA (23:22)
[2022-03-01 23:29] LABS: Basophils # 0.1 10*3/uL (0.0-0.2); Basophils % 0.8 % (0.0-0.8); Eosinophils # 0.1 10*3/uL (0.0-0.87); Eosinophils % 1.4 % (0.00-10.9); Hematocrit 35.3 VOL% (42.0-52.0); Immature Granulocytes % 0.1 %; Immature Granulocytes Absolute 0.01 #; Lymphocytes # 3.6 10*3/uL (1.4-4.0); Lymphocytes % 46.7 % (21.2-54.2); Mean Corpuscular Volume 87.4 FL (87-102); Mean Platelet Volume 9.6 FL (9.6-12.0); Monocytes # 0.6 10*3/uL (0.11-0.8); Monocytes % 8.3 % (1.7-12.7); Neutrophils % 42.7 % (38.7-73.9); Platelet Count 272 T/CUMM (130-400); Red Blood Count 4.04 MC/CUMM (3.8-5.5); Red Cell Distribution Width 12.1 % (9.3-17.3); White Blood Count 7.7 T/CUMM (4-12)
[2022-03-01 23:49] LABS: Blood Urea Nitrogen 41 MG/DL (7-18); Calcium 9.2 MG/DL (8.5-10.1); Carbon Dioxide 25 MMOL/L (21-32); Chloride 96 MMOL/L (98-107); Glucose 185 MG/DL (74-106); Osmolality,Calculated 282.2 MOS/KG (273-304); Potassium 3.7 MMOL/L (3.5-5.1); Sodium 134 MMOL/L (136-145)
[2022-03-02] MEDS ORDERED: fentaNYL 100 MCG/2 ML VIAL IV STA (00:32)
[2022-03-02] MEDS ORDERED: SODIUM CHLORIDE 0.9% 1,000 ML IV STA (01:18)
[2022-03-02] MEDS ORDERED: MORPHINE 2 MG/1 ML SYRINGE IV PRN (03:26)
[2022-03-02] MEDS ORDERED: ACETAMINOPHEN 325 MG TABLET PO PRN (03:26)
[2022-03-02] MEDS ORDERED: ONDANSETRON 4 MG/2 ML VIAL IV PRN (03:26)
[2022-03-02] MEDS ORDERED: GLUCAGON 1 MG VIAL IM PRN (03:26)
[2022-03-02] MEDS ORDERED: DEXTROSE 10% 250 ML BAG IV PRN (03:42)
[2022-03-02] MEDS: SODIUM CHLORIDE 0.9% 1,000 ML IV SCH ×2 (05:00→16:00)
[2022-03-02 05:37] LABS: Calcium 8.7 MG/DL (8.5-10.1); Osmolality,Calculated 278.8 MOS/KG (273-304); Potassium 3.6 MMOL/L (3.5-5.1)
[2022-03-02] MEDS: INSULIN LISPRO 100 UNIT/ML SUBCUT SCH ×4 (07:58→21:52)
[2022-03-02 08:02] LABS: Bilirubin,Urine Negative (Negative); Blood, Urine Negative (Negative); Glucose,Urine (UA) >1000 mg/dL (Negative); Ketones,Urine Negative (Negative); Mucus,Urine Occasional /LPF (Occasional); Nitrite,Urine Negative (Negative); Protein,Urine Negative (Negative); RBC,Urine <1 /HPF (0-4); Squamous Epithelial Cell,Urine Occasional /HPF (0-10); Urine Appearance Clear (Clear); Urine Color Yellow (Yellow); Urine Urobilinogen 0.2 eU/dL (<2.0)
[2022-03-02 08:16] LABS: Barbiturates Screen,Urine Negative (Negative); Benzodiazepines Screen,Urine Negative (Negative); Cannabinoid Screen,Urine Negative (Negative); Opiate Screen,Urine Negative (Negative); Phencyclidine Screen,Urine Negative (Negative)
[2022-03-02] MEDS: PANTOPRAZOLE 40 MG TABLET PO SCH (09:12)
[2022-03-02] MEDS ORDERED: PNEUMOCOCCAL VACCINE (23 VALENT) 0.5 ML VIAL IM ONE ×2 (09:20→14:00)
[2022-03-02] MEDS ORDERED: ENOXAPARIN 40 MG/0.4 ML SYRINGE SUBCUT SCH (21:00)
[2022-03-02] MEDS ORDERED: ZALEPLON 5 MG CAPSULE PO ONE (23:00)
[2022-03-03] MEDS: SODIUM CHLORIDE 0.9% 1,000 ML IV SCH ×2 (00:08→09:13)
[2022-03-03 08:08] LABS: Bilirubin,Total 0.4 MG/DL (0.20-1.00); Calcium 8.5 MG/DL (8.5-10.1); Osmolality,Calculated 284.5 MOS/KG (273-304); Potassium 4.2 MMOL/L (3.5-5.1); Total Protein 7.1 G/DL (6.4-8.2)
[2022-03-03 08:09] VITALS: BP 125/72
[2022-03-03] MEDS: INSULIN LISPRO 100 UNIT/ML SUBCUT SCH (09:12)
[2022-03-03] MEDS: PANTOPRAZOLE 40 MG TABLET PO SCH ×2 (09:13→09:18)
== END 2022-03-03 10:50 | disposition home or self-care (01) ==
LOC: N.EDINP 22:54 → N.ED 22:54 → N.EDINP 03-02 11:13 → N.2W 03-02 11:36
PROVIDERS: ADMIT Family Medicine; ATTEND Family Medicine